=== PATIENT | female | born 1985 | race Caucasian/White ===

== ENCOUNTER 2016-08-01 13:40 | Emergency (ER) | payer OTHER ==
[~2016-08-01] VITALS: Ht 170.2 cm; Wt 147.9 kg
[2016-08-01 13:50] VITALS: BP 145/106
--- NOTE | 2016-08-01 14:05 | PHYS DOC ---
General Chief Complaint: THUMB Stated Complaint: LEFT THUMB INJURY Time Seen by MD: 13:58 Source: patient Exam Limitations: no limitations Problems: History of Present Illness Initial Comments Pt is 30/F to ED for work comp injury. 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 Small dorsal abrasion no bleeding, pain/swelling at IP joint. Td status uncertain, mild tingling distal phalanx. No weakness/radiating symptoms. Washed aggressively under cold water prior to coming for evaluation. No other injury. Onset: just prior to arrival Severity: moderate Pain/Injury Location: left thumb Method of Injury: direct blow Modifying Factors: worse with jarring, worse with movement, improves with rest Allergies: Coded Allergies: No Known Drug Allergies (Unverified , 08/01/16) Past Medical History Medical History: other (depression, obesity) Surgical History: noncontributory (CS, knee replacement) Social History Smoker: non-smoker Alcohol: none Drugs: none Review of Systems Constitutional: denies chills, denies fever Respiratory: denies cough, denies shortness of breath Cardiovascular: denies chest pain, denies palpitations Gastrointestinal: denies nausea, denies vomiting Genitourinary: denies frequency, denies hematuria Musculoskeletal: see HPI Skin: see HPI Psychiatric/Neurological: denies headache, denies paresthesia, denies seizure, denies weakness Physical Exam General Appearance: WD/WN, no apparent distress Neck: non-tender, supple Cardiovascular/Respiratory: normal peripheral pulses, no respiratory distress Back: no CVA tenderness, no vertebral tenderness Hand: swelling (L thumb TTP at IP joint no palpable deform, ligs/tendons appear intact, swell/ecchy present. 0.5cm superficial clean abrasion in dorsal joint skin wrinkles no bleeding) Neurologic/Tendon: normal sensation, normal motor functions, normal tendon functions, responds to pain, no evidence tendon injury Psychiatric: alert, oriented x 3 Orders, Labs, Meds PATIENT: MAYO ANAYA ACCOUNT: [id number] : 1985 LOCATION: ER AGE: 30 SEX: F EXAM STATUS: PRE ER ORD. PHYSICIAN: SADA KEITH DO REASON: 1st digit trauma/pain PROCEDURE: FINGER(S) LEFT Exam performed: 3 views left thumb including single view hand. History: Patient smashed thumb in steel door, laceration to the posterior DIP joint. Date of service: 08/01/16. Comparison: None available Findings: Normal alignment is preserved. There is no acute fracture or dislocation. There is mild soft tissue swelling. No foreign body seen. Impression: Mild soft tissue swelling around the left thumb. No underlying bony abnormality seen. DICTATED AND SIGNED BY: ANTIONETTE LUNA MD DATE: 08/01/16 1430 CC: MERNA DURAN; SADA KEITH DO ~ I discussed tx plan, pt expressed agreement/understanding. Digit NV intact after splint. Departure Time of Disposition: 14:44 Disposition: 01 HOME, SELF-CARE Diagnosis: left thumb contusion Condition: GOOD Patient Instructions: Crush Injury, Fingers or Toes, [id number], RICE - Routine Care for Injuries, [id number], VIS, Tetanus, Diphtheria (Td); Tetanus , Diphtheria, Pertussis (Tdap) - CDC Additional Instructions: RICE, see handout. Wear splint as needed. Keep covered with sterile dressing, wash wound/change dressing twice daily. OTC tylenol/ibuprofen/neosporin as needed. Follow up with your doctor next week for recheck. Follow up with your employer re: work comp. Return to ED with new or changing symptoms. SADA KEITH DO August 01, 2016 14:05
[2016-08-01] MEDS ORDERED: DIPHTH,PERTUSS(ACELL),TET TOX 0.5 ML DISP.SYRIN. VAX IM ONE (14:30)
--- NOTE | 2016-08-01 14:34 | RAD ---
Exam performed: 3 views left thumb including single view hand. History: Patient smashed thumb in steel door, laceration to the posterior DIP joint. Date of service: 08/01/16. Comparison: None available Findings: Normal alignment is preserved. There is no acute fracture or dislocation. There is mild soft tissue swelling. No foreign body seen. Impression: Mild soft tissue swelling around the left thumb. No underlying bony abnormality seen.
== END 2016-08-01 14:51 | disposition home or self-care (01) ==
LOC: ER 13:40
DX: S60.012A Contusion of left thumb without damage to nail, initial encounter (principal); E66.9 Obesity, unspecified; W23.0XXA Caught, crushed, jammed, or pinched between moving objects, initial encounter; Y93.89 Activity, other specified; Y99.0 Civilian activity done for income or pay; Y92.89 Other specified places as the place of occurrence of the external cause
CPT/HCPCS: 29130; 73140; 90471; 90715; 99284-25

== ENCOUNTER → 2018-05-19 | Outpatient (CLI) | payer OTHER ==
[2016-08-01 14:17] VITALS: BP 136/83
--- NOTE | 2018-05-19 09:28 | RAD ---
3 view study of the left foot Clinical indications: Lateral left foot pain and swelling. No known injury. FINDINGS: No acute fracture or dislocation or osteolytic process is seen. Plantar spur of calcaneus is evident. No significant arthritic change is evident. IMPRESSION: Plantar spur of the calcaneus. No acute osseous abnormality. Electronically signed by: Ehsan Law MD (05/19/2018 9:25 AM) [facility]
== END | disposition home or self-care (01) ==
LOC: PMG 09:00
PROVIDERS: ATTEND Physician Assistant Medical
DX: M77.32 Calcaneal spur, left foot (principal)
CPT/HCPCS: 73630

== ENCOUNTER → 2018-12-21 | Outpatient (CLI) | payer OTHER ==
[2016-08-01 14:17] VITALS: BP 136/83
--- NOTE | 2018-12-21 15:43 | RAD ---
EXAM: Right foot, 2 views. HISTORY: Injury. COMPARISON: None. FINDINGS: 2 views of the right foot are obtained. No displaced fracture is seen. There is a small plantar spur. There is enthesopathy at the Achilles insertion. IMPRESSION: No acute osseous finding. Electronically signed by: Jo Ann Murdock MD (12/21/2018 3:41 PM) [facility]
== END | disposition home or self-care (01) ==
LOC: DXRAD 14:08
PROVIDERS: ATTEND Physician Assistant
DX: M79.671 Pain in right foot (principal); M77.8 Other enthesopathies, not elsewhere classified; M77.51 Other enthesopathy of right foot and ankle
CPT/HCPCS: 73620

== ENCOUNTER → 2019-02-24 | Outpatient (CLI) | payer OTHER ==
[2016-08-01 14:17] VITALS: BP 136/83
--- NOTE | 2019-02-24 14:56 | RAD ---
EXAM: Chest, 2 views. HISTORY: Cough. Shortness of air. COMPARISON: None. FINDINGS: 2 views of chest are obtained. There is no infiltrate, pleural effusion or pneumothorax. The heart is normal in size. IMPRESSION: No acute pulmonary finding. Electronically signed by: Jo Ann Murdock MD (02/24/2019 2:53 PM) [facility] [place]
== END | disposition home or self-care (01) ==
LOC: DXRAD 13:36
PROVIDERS: ATTEND Registered Nurse
DX: R05 Cough (principal)
CPT/HCPCS: 71046

== ENCOUNTER → 2019-11-16 | Outpatient (CLI) | payer OTHER ==
[2016-08-01 14:17] VITALS: BP 136/83
--- NOTE | 2019-11-16 16:14 | RAD ---
KNEE LEFT 3V DATE: 11/16/2019 12:00 AM INDICATION: LEFT KNEE PAIN, S/P FALL COMPARISON: None. FINDINGS: Bones: There is no evidence of acute fracture or dislocation. Postsurgical changes of prior ACL repair. Joints: Moderate medial and lateral compartment degenerative changes. Mild patellofemoral compartment degenerative changes. There is no joint effusion. Miscellaneous: None. IMPRESSION: No acute osseous abnormality. Tricompartmental degenerative changes and prior ACL repair as above. Electronically signed by: Khoa Toribio MD (11/16/2019 4:11 PM) [id number]
== END ==
LOC: DXRAD 13:10
PROVIDERS: ATTEND Physician Assistant
DX: M17.12 Unilateral primary osteoarthritis, left knee (principal)
CPT/HCPCS: 73562

== ENCOUNTER 2021-07-05 07:45 | Emergency (ER) | payer OTHER ==
[~2021-07-05] VITALS: Ht 171.4 cm; Wt 150.3 kg
[2021-07-05] MEDS ORDERED: ONDANSETRON PF 4 MG/2 ML VIAL. IVP ONE (08:15)
[2021-07-05] MEDS ORDERED: MORPHINE SULFATE 4 MG/ML DISP.SYRIN. IV ONE (08:15)
[2021-07-05] MEDS ORDERED: IV NORMAL SALINE 1,000ML 1,000 ML IV ONE (08:15)
[2021-07-05] MEDS ORDERED: IPRATRPIUM/ALBUTEROL 0.5/2.5MG 3 ML NEBU. NEB ONE (08:30)
[2021-07-05] MEDS ORDERED: predniSONE 20 MG TABLET PO ONE (08:30)
[2021-07-05 08:52] LABS: BASO # 0.2 x10^3/uL (0.0-0.2); BASO % 2 % (0-3); EOS # 0.3 x10^3/uL (0.0-0.7); EOS % 3 % (0-3); HEMATOCRIT 42.9 % (36.0-47.0); HEMOGLOBIN 14.4 g/dL (12.0-15.5); LYMPH # 1.7 x10^3/uL (1.0-4.8); LYMPH % 16 % (24-48); MEAN CORPUSCULAR HEMOGLOBIN 30 pg (25-35); MEAN CORPUSCULAR HGB CONC 33 g/dL (31-37); MEAN CORPUSCULAR VOLUME 89 fL (79-100); MONO # 0.3 x10^3/uL (0.0-1.1); MONO % 3 % (0-9); NEUT # 7.7 x10^3uL (1.8-7.7); NEUT % 75 % (31-73); PLATELET COUNT 333 x10^3/uL (140-400); RED CELL DISTRIBUTION WIDTH 13.4 % (11.5-14.5); WHITE BLOOD COUNT 10.2 x10^3/uL (4.0-11.0)
[2021-07-05 08:58] LABS: CALCIUM 9.1 mg/dL (8.5-10.1); CREATININE 0.8 mg/dL (0.6-1.0); GFR 80.7; POTASSIUM 4.4 mmol/L (3.5-5.1)
[2021-07-05 09:05] LABS: ALBUMIN 3.5 g/dL (3.4-5.0); ALBUMIN/GLOBULIN RATIO 0.9 (1.0-1.7); TOTAL BILIRUBIN 0.3 mg/dL (0.2-1.0); TOTAL PROTEIN 7.6 g/dL (6.4-8.2)
[2021-07-05 09:08] LABS: INFLUENZA A PATIENT NEGATIVE (NEGATIVE); INFLUENZA B PATIENT NEGATIVE (NEGATIVE)
--- NOTE | 2021-07-05 09:50 | RAD ---
XR CHEST 1V History: Pain, cough, hypertension. Comparison: CT abdomen pelvis 07/05/2021. Chest x-ray 02/24/2019. Technique: AP radiograph of the chest. Findings: The lungs are adequately and symmetrically inflated. No airspace consolidation, pleural effusion or p neumothorax. The cardiomediastinal silhouette and pulmonary vasculature are within normal limits. No acute osseous abnormality. Soft tissues are unremarkable. Impression: 1. No acute cardiopulmonary process. Electronically signed by: Soy Pinedo MD (07/05/2021 9:48 AM) [id number]
--- NOTE | 2021-07-05 10:07 | RAD ---
CT ABDOMEN+PELVIS WO History: Left flank pain. Comparison: None. Technique: CT of the abdomen and pelvis without contrast. Findings: The lung bases are clear. The liver is unremarkable. There is a large peripherally calcified stone at the gallbladder neck measuring 2.6 cm diameter and a few tiny gallstones dependently in the gallblad starr fundus. The pancreas, spleen, and adrenal glands are unremarkable. There are punctate bilateral nephroliths. No hydronephrosis. No ureterolithiasis identified. The blad starr is unremarkable. Expected positioning of an intrauterine device in the uterine fundus. Unremarkab le ovaries. The stomach and small bowel are normal. Normal appendix. No colonic wall thickening or pericolonic in flammatory changes. No intra-abdominal free air or free fluid. Vasculature is unremarkable. Shotty re troperitoneal lymph nodes. Small fat-containing umbilical hernia. Transitional lumbosacral anatomy wi th partially lumbarized S1. Degenerative disc height loss at L5-S1. Impression: 1. Bilateral punctate nonobstructing nephrolithiasis. No hydronephrosis or ureterolithiasis. 2. Cholelithiasis without evidence of acute cholecystitis. 3. Transitional lumbosacral anatomy with degenerative changes at the lumbosacral junction. ------ Exposure: One or more of the following individualized dose reduction techniques were utilized for thi s examination: 1. Automated exposure control 2. Adjustment of the mA and/or kV according to patient size 3. Use of iterative reconstruction technique. Electronically signed by: Soy Pinedo MD (07/05/2021 10:04 AM) [id number]
[2021-07-05 10:20] VITALS: BP 136/96
[2021-07-05 10:21] LABS: BACTERIA,URINE 0 /HPF (0-FEW); CLARITY,URINE CLEAR; COLOR,URINE YELLOW; GLUCOSE,URINE NEG (NEG); NITRITE,URINE NEG (NEG); RBC,URINE OCC /HPF (0-2); SQUAMOUS EPITHELIAL CELL,UR OCC /LPF; UROBILINOGEN,URINE 0.2 mg/dL (0.2 mg/dL); WBC,URINE OCC /HPF (0-4)
[2021-07-05] MEDS ORDERED: ONDA4TAB12 PO (10:25)
[2021-07-05] MEDS ORDERED: HYDR-2759 PO (10:25)
--- NOTE | 2021-07-05 10:25 | PHYS DOC ---
Past History Past Medical History: Depression Additional Past Medical Histor: ECZEMA, ENVIRONMENTAL ALLERGIES Past Surgical History: , Knee Replacement, Other Additional Past Surgical Histo: RIGHT FOOT Alcohol Use: Occasionally Drug Use: None General Adult EDM: Chief Complaint: ABDOMINAL PAIN HPI: HPI: Patient is a 35-year-old female presents with abdominal pain that started about 2 in the morning. Pain is in the epigastrium and left upper quadrant does radiate through to the back. She has been nauseated but has not thrown up. No associated fever, no lower quadrant pain. She has not had any burning with urination or blood in the urine, no chest pain, cough or shortness of breath. No recent trauma. Patient states he has not had any previous abdominal surgeries. Review of Systems: Review of Systems: Constitutional: Denies fever Eyes: Denies change in visual acuity or eye pain HENT: Denies sore throat Respiratory: Denies shortness of breath Cardiovascular: Denies chest pain GI: Reports abd pain : Denies dysuria Musculoskeletal: Denies back or extremity injury Integument: Denies rash or skin lesions Neurologic: Denies headache, focal weakness or sensory changes All other systems were reviewed and found to be within normal limits, except as documented in this note. Current Medications: Current Meds: Current Medications Medications (Trade) Dose Ordered Sig/Kortney Start Time Stop Time Status Last Admin Dose Admin Albuterol/ Ipratropium (Duoneb) 6 ml 1X ONCE 07/05/21 08:30 07/05/21 08:29 DC Morphine Sulfate (Morphine 4mg Syringe) 4 mg 1X ONCE 07/05/21 08:15 07/05/21 08:16 DC 07/05/21 08:31 4 MG Ondansetron HCl (Zofran) 4 mg 1X ONCE 07/05/21 08:15 07/05/21 08:16 DC 07/05/21 08:30 4 MG Prednisone (Prednisone) 60 mg 1X ONCE 07/05/21 08:30 07/05/21 08:29 DC Sodium Chloride 1,000 ml @ 1,000 mls/hr 1X ONCE 07/05/21 08:15 07/05/21 09:14 DC 07/05/21 08:28 1,000 MLS/HR Allergies: Allergies: Allergies Coded Allergies Type Severity Reaction Last Updated Verified No Known Drug Allergies 07/05/21 No Physical Exam: PE: Constitutional: Well developed, well nourished, no acute distress, non-toxic appearance. HENT: Normocephalic, atraumatic, bilateral external ears normal, mucosa moist, nose normal. Eyes: EOMI, conjunctiva normal, no discharge. Neck: Normal range of motion, supple, no stridor, no meningeal signs. Cardiovascular: Regular rate and rhythm Lungs & Thorax: Bilateral breath sounds clear to auscultation Abdomen: Soft, mild epigastric tenderness, no obvious masses Skin: Warm, dry, no erythema, no rash. Extremities: No tenderness, no cyanosis, no clubbing, ROM intact, no edema. Neurologic: Alert and oriented, normal motor function, normal sensory function, no focal deficits noted. Psychologic: Affect normal, judgement normal, mood normal. Current Patient Data: Labs: Laboratory Tests Test 07/05/21 08:25 07/05/21 08:35 07/05/21 08:45 07/05/21 09:02 White Blood Count 10.2 x10^3/uL (4.0-11.0) Red Blood Count 4.80 x10^6/uL (3.50-5.40) Hemoglobin 14.4 g/dL (12.0-15.5) Hematocrit 42.9 % (36.0-47.0) Mean Corpuscular Volume 89 fL (79-100) Mean Corpuscular Hemoglobin 30 pg (25-35) Mean Corpuscular Hemoglobin Concent 33 g/dL (31-37) Red Cell Distribution Width 13.4 % (11.5-14.5) Platelet Count 333 x10^3/uL (140-400) Neutrophils (%) (Auto) 75 % (31-73) H Lymphocytes (%) (Auto) 16 % (24-48) L Monocytes (%) (Auto) 3 % (0-9) Eosinophils (%) (Auto) 3 % (0-3) Basophils (%) (Auto) 2 % (0-3) Neutrophils # (Auto) 7.7 x10^3uL (1.8-7.7) Lymphocytes # (Auto) 1.7 x10^3/uL (1.0-4.8) Monocytes # (Auto) 0.3 x10^3/uL (0.0-1.1) Eosinophils # (Auto) 0.3 x10^3/uL (0.0-0.7) Basophils # (Auto) 0.2 x10^3/uL (0.0-0.2) Sodium Level 142 mmol/L (136-145) Potassium Level 4.4 mmol/L (3.5-5.1) Chloride Level 104 mmol/L (98-107) Carbon Dioxide Level 27 mmol/L (21-32) Anion Gap 11 (6-14) Blood Urea Nitrogen 10 mg/dL (7-20) Creatinine 0.8 mg/dL (0.6-1.0) Estimated GFR (Cockcroft-Gault) 80.7 BUN/Creatinine Ratio 13 (6-20) Glucose Level 121 mg/dL (70-99) H Calcium Level 9.1 mg/dL (8.5-10.1) Total Bilirubin 0.3 mg/dL (0.2-1.0) Aspartate Amino Transferase (AST) 18 U/L (15-37) Alanine Aminotransferase (ALT) 24 U/L (14-59) Alkaline Phosphatase 95 U/L (46-116) Total Protein 7.6 g/dL (6.4-8.2) Albumin 3.5 g/dL (3.4-5.0) Albumin/Globulin Ratio 0.9 (1.0-1.7) L Lipase 56 U/L (73-393) L Influenza Type A (Rapid) Negative (NEGATIVE) Influenza Type B (Rapid) Negative (NEGATIVE) Lactic Acid Level 1.4 mmol/L (0.4-2.0) POC Urine HCG, Qualitative hcg negative (Negative) Vital Signs: Vital Signs Date Time Temp Pulse Resp B/P (MAP) Pulse Ox O2 Delivery O2 Flow Rate FiO2 07/05/21 08:31 18 99 Room Air 07/05/21 08:02 97.4 73 139/81 (100) EKG: EKG: [] Radiology/Procedures: Radiology/Procedures: [] Impressions: PATIENT: MAYO ANAYA ACCOUNT: [id number] : 1985 LOCATION: ER AGE: 35 SEX: F EXAM STATUS: REG ER ORD. PHYSICIAN: SUHAS JONES MD REASON: left flank pain PROCEDURE: CT ABDOMEN PELVIS WO CONTRAST CT ABDOMEN+PELVIS WO History: Left flank pain. Comparison: None. Technique: CT of the abdomen and pelvis without contrast. Findings: The lung bases are clear. The liver is unremarkable. There is a large peripherally calcified stone at the gallbladder neck measuring 2.6 cm diameter and a few tiny gallstones dependently in the gallbladder fundus. The pancreas, spleen, and adrenal glands are unremarkable. There are punctate bilateral nephroliths. No hydronephrosis. No ureterolithiasis identified. The bladder is unremarkable. Expected positioning of an intrauterine device in the uterine fundus. Unremarkable ovaries. The stomach and small bowel are normal. Normal appendix. No colonic wall thickening or pericolonic inflammatory changes. No intra-abdominal free air or free fluid. Vasculature is unremarkable. Shotty retroperitoneal lymph nodes. Small fat-containing umbilical hernia. Transitional lumbosacral anatomy with partially lumbarized S1. Degenerative disc height loss at L5-S1. Impression: 1. Bilateral punctate nonobstructing nephrolithiasis. No hydronephrosis or ureterolithiasis. 2. Cholelithiasis without evidence of acute cholecystitis. 3. Transitional lumbosacral anatomy with degenerative changes at the lumbosacral junction. ------ Exposure: One or more of the following individualized dose reduction techniques were utilized for this examination: 1. Automated exposure control 2. Adjustment of the mA and/or kV according to patient size 3. Use of iterative reconstruction technique. Electronically signed by: Soy Lainez MD (07/05/2021 10:04 AM) [id number] DICTATED AND SIGNED BY: SOY LAINEZ MD DATE: 07/05/21 0945 CC: MERNA DURAN; SUHAS JONES MD ~ PATIENT: MAYO ANAYA ACCOUNT: [id number] : 1985 LOCATION: ER AGE: 35 SEX: F EXAM STATUS: REG ER ORD. PHYSICIAN: SUHAS JONES MD REASON: pain, cough, HTN PROCEDURE: CHEST AP ONLY XR CHEST 1V History: Pain, cough, hypertension. Comparison: CT abdomen pelvis 07/05/2021. Chest x-ray 02/24/2019. Technique: AP radiograph of the chest. Findings: The lungs are adequately and symmetrically inflated. No airspace consolidation, pleural effusion or pneumothorax. The cardiomediastinal silhouette and pulmonary vasculature are within normal limits. No acute osseous abnormality. Soft tissues are unremarkable. Impression: 1. No acute cardiopulmonary process. Electronically signed by: Soy Lainez MD (07/05/2021 9:48 AM) [id number] DICTATED AND SIGNED BY: SOY LAINEZ MD DATE: 07/05/21 0947 CC: MERNA DURAN; SUHAS JONES MD ~ Heart Score: C/O Chest Pain: No Risk Factors: Risk Factors: DM, Current or recent (<one month) smoker, HTN, HLP, family history of CAD, obesity. Risk Scores: Score 0 - 3: 2.5% MACE over next 6 weeks - Discharge Home Score 4 - 6: 20.3% MACE over next 6 weeks - Admit for Clinical Observation Score 7 - 10: 72.7% MACE over next 6 weeks - Early Invasive Strategies Course & Med Decision Making: Course & Med Decision Making Pertinent Labs and Imaging studies reviewed. (See chart for details) [] This is a 35-year-old female with abdominal pain. CT of the abdomen and pelvis demonstrates a large stone in the gallbladder without evidence of active cholecystitis. I suspect her symptoms are from biliary colic though. She was given a liter of normal saline, 4 of Zofran and 4 morphine in the ED with relief of symptoms. We will discharge her with prescriptions for Russell and Zofran orally and have her follow-up with general surgery, she is to return to the emergency department if symptoms become worse or other concerns arise, she is stable for discharge at this time. Dragon Disclaimer: Dragon Disclaimer: This electronic medical record was generated, in whole or in part, using a voice recognition dictation system. Departure Departure: Impression: Primary Impression: Biliary colic Disposition: HOME / SELF CARE / HOMELESS Condition: STABLE Referrals: MERNA DURAN (PCP) NAINA PRO MD Patient Instructions: Biliary Colic Scripts Ondansetron (ONDANSETRON ODT) 4 Mg Tab.rapdis 1 TAB PO Q6HRS for nausea, #12 TAB Prov: SUHAS JONES MD 07/05/21 Hydrocodone/Acetaminophen (Hydrocodone-Acetamin 5-325 mg) 1 Each Tablet 1 EACH PO Q6HRS for pain, #12 TAB Prov: SUHAS JONES MD 07/05/21 SUHAS JONES MD Jul 05, 2021 10:25
== END 2021-07-05 10:45 | disposition home or self-care (01) ==
LOC: ER 07:45
DX: K80.50 Calculus of bile duct without cholangitis or cholecystitis without obstruction (principal); Z98.890 Other specified postprocedural states
CPT/HCPCS: 36415; 71045; 74176; 80053; 81001; 81025; 83605; 83690; 85025; 87804; 96361; 96374; 96375; 99285; J2270; J2405; J7030; 87428

== ENCOUNTER 2021-07-14 15:26 | Emergency (ER) | payer OTHER ==
[~2021-07-14] VITALS: Ht 171.4 cm; Wt 150.3 kg
[2021-07-14 15:26] VITALS: BP 137/85
[~2021-07-14 15:26] MED LIST: HYDR-2759 PO; ONDA4TAB12 PO
--- NOTE | 2021-07-14 16:17 | PHYS DOC ---
Past History Past Medical History: Depression Additional Past Medical Histor: ECZEMA, ENVIRONMENTAL ALLERGIES Past Surgical History: , Knee Replacement, Other Additional Past Surgical Histo: RIGHT FOOT Alcohol Use: Occasionally Drug Use: None General Adult EDM: Chief Complaint: PAIN CONTROL HPI: HPI: 35-year-old female returns the emergency room with epigastric abdominal pain. The patient was seen about a week ago by my colleague. She was diagnosed with gallbladder disease and a large cholelithiasis. She has only taken 4 or 5 of her Waterloo over the last 1 week. She presents today because she took 2 of them today and she still has pain. Patient has not eaten today. She is just concerned that things may be getting worse. She is scheduled to see a surgeon for consultation in 2 days. Her pain is currently a 5 out of 10. Review of Systems: Review of Systems: Constitutional: Denies fever or chills Eyes: Denies change in visual acuity HENT: Denies nasal congestion or sore throat Respiratory: Denies cough or shortness of breath Cardiovascular: Denies chest pain or edema GI: Epigastric abdominal pain, nausea. Denies vomiting, bloody stools or diarrhea : Denies dysuria Musculoskeletal: Denies back pain or joint pain Integument: Denies rash Neurologic: Denies headache, focal weakness or sensory changes Endocrine: Denies polyuria or polydipsia Lymphatic: Denies swollen glands Psychiatric: Denies depression or anxiety Current Medications: Current Meds: Current Medications Medications (Trade) Dose Ordered Sig/Kortney Start Time Stop Time Status Last Admin Dose Admin Acetaminophen/ Hydrocodone Bitart (Lortab 7.5/325) 1 tab 1X ONCE 07/14/21 16:15 07/14/21 16:16 UNV Allergies: Allergies: Allergies Coded Allergies Type Severity Reaction Last Updated Verified No Known Drug Allergies 07/05/21 No Physical Exam: PE: Constitutional: Well developed, well nourished, no acute distress, non-toxic appearance. [] HENT: Normocephalic, atraumatic, bilateral external ears normal, oropharynx moist, no oral exudates, nose normal. [] Eyes: PERRLA, EOMI, conjunctiva normal, no discharge. [] Neck: Normal range of motion, no tenderness, supple, no stridor. [] Cardiovascular:Heart rate regular rhythm, no murmur [] Lungs & Thorax: Bilateral breath sounds clear to auscultation [] Abdomen: Bowel sounds normal, soft, no tenderness, no masses, no pulsatile masses. [] Skin: Warm, dry, no erythema, no rash. [] Back: No tenderness, no CVA tenderness. [] Extremities: No tenderness, no cyanosis, no clubbing, ROM intact, no edema. [] Neurologic: Alert and oriented X 3, normal motor function, normal sensory function, no focal deficits noted. [] Psychologic: Affect normal, judgement normal, mood normal. [] EKG: EKG: [] Radiology/Procedures: Radiology/Procedures: [] Heart Score: C/O Chest Pain: N/A Risk Factors: Risk Factors: DM, Current or recent (<one month) smoker, HTN, HLP, family history of CAD, obesity. Risk Scores: Score 0 - 3: 2.5% MACE over next 6 weeks - Discharge Home Score 4 - 6: 20.3% MACE over next 6 weeks - Admit for Clinical Observation Score 7 - 10: 72.7% MACE over next 6 weeks - Early Invasive Strategies Course & Med Decision Making: Course & Med Decision Making Pertinent Labs and Imaging studies reviewed. (See chart for details) Patient's labs are unremarkable. Her enzymes and lipase are not elevated. I gave her Waterloo 7.5 to help with her uncontrolled pain. I believe she can be controlled at home with oral pain medication. I have given her an additional short course of Waterloo as she is likely to run out before her appointment. She is stable for discharge at this time. [] Sharmila Disclaimer: Sharmila Disclaimer: This electronic medical record was generated, in whole or in part, using a voice recognition dictation system. Departure Departure: Impression: Primary Impression: Cholelithiasis Qualified Codes: K80.20 - Calculus of gallbladder without cholecystitis without obstruction Disposition: HOME / SELF CARE / HOMELESS Condition: STABLE Referrals: MERNA DURAN (PCP) Patient Instructions: Cholelithiasis, Hrcl-lt-Aeum Scripts Hydrocodone/Acetaminophen (Hydrocodone-Acetamin 5-325 mg) 1 Each Tablet 1-2 EACH PO Q6HRS PRN for PAIN, #12 TAB Prov: BELINDA CALDWELL DO 07/14/21 BELINDA CALDWELL DO Jul 14, 2021 16:17
[2021-07-14] MEDS: HYDROcodone/APAP 7.5/325MG 1 TAB TABLET PO ONE (16:33)
[2021-07-14 17:06] LABS: BASO # 0.1 x10^3/uL (0.0-0.2); BASO % 1 % (0-3); EOS # 0.5 x10^3/uL (0.0-0.7); EOS % 4 % (0-3); HEMATOCRIT 43.2 % (36.0-47.0); HEMOGLOBIN 14.5 g/dL (12.0-15.5); LYMPH # 2.7 x10^3/uL (1.0-4.8); LYMPH % 20 % (24-48); MEAN CORPUSCULAR HEMOGLOBIN 30 pg (25-35); MEAN CORPUSCULAR HGB CONC 34 g/dL (31-37); MEAN CORPUSCULAR VOLUME 90 fL (79-100); MONO # 0.7 x10^3/uL (0.0-1.1); MONO % 5 % (0-9); NEUT # 9.7 x10^3uL (1.8-7.7); NEUT % 71 % (31-73); PLATELET COUNT 325 x10^3/uL (140-400); RED BLOOD COUNT 4.82 x10^6/uL (3.50-5.40); RED CELL DISTRIBUTION WIDTH 12.9 % (11.5-14.5); WHITE BLOOD COUNT 13.7 x10^3/uL (4.0-11.0)
[2021-07-14 17:15] LABS: CALCIUM 8.7 mg/dL (8.5-10.1); CREATININE 0.7 mg/dL (0.6-1.0); GFR 94.2; POTASSIUM 4.1 mmol/L (3.5-5.1)
[2021-07-14 17:21] LABS: ALBUMIN 3.3 g/dL (3.4-5.0); ALBUMIN/GLOBULIN RATIO 0.8 (1.0-1.7); TOTAL BILIRUBIN 0.3 mg/dL (0.2-1.0); TOTAL PROTEIN 7.4 g/dL (6.4-8.2)
[2021-07-14] MEDS ORDERED: HYDR-2759 PO (17:50)
== END 2021-07-14 18:22 | disposition home or self-care (01) ==
LOC: ER 15:26
DX: K80.20 Calculus of gallbladder without cholecystitis without obstruction (principal)
CPT/HCPCS: 36415; 80053; 83690; 85025; 99283-25